=== PATIENT | female | born 1955 | race Caucasian/White ===

== ENCOUNTER 2016-12-09 14:43 | Inpatient (IN) | payer OTHER ==
[~2016-12-09] VITALS: Ht 167.6 cm; Wt 57.9 kg
[2016-12-09] MEDS ORDERED: SODIUM CHLORIDE FLUSH 10ML SYR IVF ONE (15:30)
[2016-12-09] MEDS ORDERED: SODIUM CHLORIDE 0.9% 1,000ML IVBOLUS ONE ×2 (15:30)
[2016-12-09 15:47] LABS: HEMATOCRIT 34.6 % (34.6-47.8); HEMOGLOBIN 11.5 g/dL (11.7-16.4); WHITE BLOOD COUNT 13.5 x10^3/uL (3.4-10)
[2016-12-09 15:52] LABS: ASPARTATE AMINO TRANSFERASE 8 U/L (15-37); BLOOD UREA NITROGEN 9 mg/dL (7-18)
[2016-12-09] MEDS ORDERED: VANCOMYCIN PMX 1GM/200ML 200 ML IV ONE (17:00)
[2016-12-09] MEDS ORDERED: PIPERACILLIN/TAZO/PMX 4.5GM 100 ML IVPB ONE ×2 (17:00→17:30)
[2016-12-09] MEDS ORDERED: PHARMACOKINETIC CONSULTATION MC ONE ×2 (17:00→20:30)
[2016-12-09] MEDS ORDERED: VANCOMYCIN 1,900 MG in SODIUM CHLORIDE 0.9% 250 ML IV ONE (17:00)
[2016-12-09] MEDS ORDERED: VANCOMYCIN PER PHARMACY MC ONE ×2 (17:00→17:30)
[2016-12-09] MEDS ORDERED: FENTANYL PF 100 MCG/2ML ONE (17:28)
[2016-12-09] MEDS ORDERED: MIDAZOLAM 1 MG/ML, 5ML ONE (17:28)
[2016-12-09] MEDS ORDERED: NALOXONE 1 MG/ML, 2ML ONE (17:29)
[2016-12-09] MEDS ORDERED: FLUMAZENIL 0.1 MG/1 ML, 5ML ONE (17:29)
[2016-12-09] MEDS ORDERED: ACETAMINOPHEN 325 MG TABLET PO PRN (17:30)
[2016-12-09] MEDS ORDERED: DOCUSATE 100 MG CAPSULE PO PRN (17:30)
[2016-12-09] MEDS ORDERED: ENALAPRILAT 1.25 MG/ML, 2ML IVPush PRN (17:30)
[2016-12-09] MEDS ORDERED: ONDANSETRON ODT 4 MG PO PRN (17:30)
[2016-12-09] MEDS: NICOTINE 14MG/24 HR PATCH.TD24 TD SCH (17:30)
[2016-12-09] MEDS ORDERED: ONDANSETRON 2MG/ML, 2ML IVPush PRN (17:30)
[2016-12-09] MEDS ORDERED: morphine SULFATE 10 MG/ML, 1ML IVPush PRN (17:30)
[2016-12-09] MEDS ORDERED: BISACODYL 10 MG SUPP PR PRN (17:30)
[2016-12-09] MEDS ORDERED: VANCOMYCIN PER PHARMACY MC PRN (18:00)
[2016-12-09] MEDS: PIPERACILLIN/TAZO/PMX 4.5GM 100 ML IV SCH (18:00)
[2016-12-09] MEDS ORDERED: PHARMACOKINETIC MONITORING MC PRN (20:30)
[2016-12-09] MEDS: SODIUM CHLORIDE 0.9% 1,000 ML IV SCH (20:47)
[2016-12-10] MEDS: PIPERACILLIN/TAZO/PMX 4.5GM 100 ML IV SCH ×4 (00:32→18:02)
[2016-12-10 04:05] VITALS: BP 131/82
[2016-12-10 05:11] LABS: HEMOGLOBIN 10.1 g/dL (11.7-16.4); WHITE BLOOD COUNT 10.4 x10^3/uL (3.4-10)
[2016-12-10 05:14] LABS: BLOOD UREA NITROGEN 4 mg/dL (7-18)
[2016-12-10 05:19] LABS: ASPARTATE AMINO TRANSFERASE 10 U/L (15-37)
[2016-12-10] MEDS: VANCOMYCIN PMX 1GM/200ML 200 ML IV SCH ×2 (08:00→21:04)
[2016-12-10 08:29] VITALS: BP 132/72
[2016-12-10] MEDS: SODIUM CHLORIDE 0.9% 1,000 ML IV SCH (11:55)
[2016-12-10 13:41] VITALS: BP 132/63
[2016-12-10] MEDS: HYDROcodone/APAP 5/325 TABLET PO PRN ×2 (13:53→18:10)
[2016-12-10] MEDS ORDERED: IBUPROFEN 200 MG TABLET PO PRN (14:00)
[2016-12-10] MEDS: NICOTINE 14MG/24 HR PATCH.TD24 TD SCH (16:46)
[2016-12-10] MEDS: IBUPROFEN 600 MG TABLET PO PRN (18:10)
[2016-12-10 19:07] VITALS: BP 103/65
[2016-12-11] MEDS: PIPERACILLIN/TAZO/PMX 4.5GM 100 ML IV SCH ×5 (00:02→23:59)
[2016-12-11] MEDS: HYDROcodone/APAP 5/325 TABLET PO PRN ×6 (01:12→22:18)
[2016-12-11 01:30] VITALS: BP 116/68
[2016-12-11] MEDS: IBUPROFEN 600 MG TABLET PO PRN ×3 (02:34→20:47)
[2016-12-11] MEDS: SODIUM CHLORIDE 0.9% 1,000 ML IV SCH ×2 (03:24→19:00)
[2016-12-11 05:53] LABS: BLOOD UREA NITROGEN 4 mg/dL (7-18)
[2016-12-11 06:13] LABS: HEMATOCRIT 28.6 % (34.6-47.8); HEMOGLOBIN 9.8 g/dL (11.7-16.4); WHITE BLOOD COUNT 8.7 x10^3/uL (3.4-10)
[2016-12-11 08:04] VITALS: BP 111/72
[2016-12-11] MEDS: VANCOMYCIN PMX 1GM/200ML 200 ML IV SCH (08:37)
[2016-12-11 13:32] VITALS: BP 127/74
[2016-12-11] MEDS: NICOTINE 14MG/24 HR PATCH.TD24 TD SCH (17:27)
[2016-12-11] MEDS ORDERED: PHARMACOKINETIC MONITORING MC PRN (19:00)
[2016-12-11] MEDS ORDERED: morphine SULFATE 10 MG/ML, 1ML IVPush PRN (19:00)
[2016-12-11] MEDS ORDERED: BISACODYL 10 MG SUPP PR PRN (19:00)
[2016-12-11] MEDS ORDERED: ACETAMINOPHEN 325 MG TABLET PO PRN (19:00)
[2016-12-11] MEDS ORDERED: VANCOMYCIN PER PHARMACY MC PRN (19:00)
[2016-12-11] MEDS ORDERED: ONDANSETRON ODT 4 MG PO PRN (19:00)
[2016-12-11] MEDS ORDERED: ONDANSETRON 2MG/ML, 2ML IVPush PRN (19:00)
[2016-12-11] MEDS ORDERED: ENALAPRILAT 1.25 MG/ML, 2ML IVPush PRN (19:00)
[2016-12-11 19:40] VITALS: BP 105/62
[2016-12-11] MEDS: VANCOMYCIN 1,200 MG in SODIUM CHLORIDE 0.9% 250 ML IV SCH (21:27)
[2016-12-12 01:58] VITALS: BP 121/68
[2016-12-12] MEDS: HYDROcodone/APAP 5/325 TABLET PO PRN ×4 (02:26→14:53)
[2016-12-12 05:27] LABS: HEMATOCRIT 27.6 % (34.6-47.8); HEMOGLOBIN 9.2 g/dL (11.7-16.4); WHITE BLOOD COUNT 9.2 x10^3/uL (3.4-10)
[2016-12-12 05:50] LABS: ASPARTATE AMINO TRANSFERASE 7 U/L (15-37); BLOOD UREA NITROGEN 4 mg/dL (7-18)
[2016-12-12] MEDS: SODIUM CHLORIDE 0.9% 1,000 ML IV SCH (06:26)
[2016-12-12] MEDS: PIPERACILLIN/TAZO/PMX 4.5GM 100 ML IV SCH (06:26)
[2016-12-12 07:47] VITALS: BP 134/82
[2016-12-12] MEDS: IBUPROFEN 600 MG TABLET PO PRN (08:59)
[2016-12-12] MEDS: DOCUSATE 100 MG CAPSULE PO PRN (08:59)
[2016-12-12] MEDS: VANCOMYCIN 1,200 MG in SODIUM CHLORIDE 0.9% 250 ML IV SCH (10:03)
[2016-12-12] MEDS: ERTAPENEM 1 GM in SODIUM CHLORIDE 0.9% 50 ML IV SCH (12:19)
[2016-12-12 15:03] VITALS: BP 127/79
[2016-12-12] MEDS ORDERED: MAGNESIUM CITRATE 300ML ORAL SOL PO PRN (16:30)
[2016-12-12] MEDS: NICOTINE 14MG/24 HR PATCH.TD24 TD SCH (17:23)
[2016-12-12 20:46] VITALS: BP 132/64
[2016-12-13] MEDS: HYDROcodone/APAP 5/325 TABLET PO PRN ×4 (01:13→20:56)
[2016-12-13] MEDS: IBUPROFEN 600 MG TABLET PO PRN ×3 (01:13→16:25)
[2016-12-13] MEDS: SODIUM CHLORIDE 0.9% 1,000 ML IV SCH ×2 (01:13→16:31)
[2016-12-13 04:00] VITALS: BP 121/67
[2016-12-13 07:55] VITALS: BP 134/81
[2016-12-13] MEDS: ERTAPENEM 1 GM in SODIUM CHLORIDE 0.9% 50 ML IV SCH (12:06)
[2016-12-13 13:05] VITALS: BP 128/68
[2016-12-13] MEDS: NICOTINE 14MG/24 HR PATCH.TD24 TD SCH (16:26)
[2016-12-13 20:18] VITALS: BP 143/82
[2016-12-13] MEDS: DOCUSATE 100 MG CAPSULE PO PRN (20:56)
[2016-12-14] MEDS: HYDROcodone/APAP 5/325 TABLET PO PRN ×4 (01:00→23:51)
[2016-12-14] MEDS: IBUPROFEN 600 MG TABLET PO PRN ×4 (01:00→23:06)
[2016-12-14] MEDS: SODIUM CHLORIDE 0.9% 1,000 ML IV SCH ×2 (06:45→23:03)
[2016-12-14 07:45] VITALS: BP 145/85
[2016-12-14] MEDS: ERTAPENEM 1 GM in SODIUM CHLORIDE 0.9% 50 ML IV SCH (12:00)
[2016-12-14 13:10] VITALS: BP 133/78
[2016-12-14] MEDS: NICOTINE 14MG/24 HR PATCH.TD24 TD SCH (17:13)
[2016-12-14 20:00] VITALS: BP 157/90
[2016-12-15 02:53] VITALS: BP 144/82
[2016-12-15 08:30] VITALS: BP 155/91
[2016-12-15] MEDS: IBUPROFEN 600 MG TABLET PO PRN ×4 (08:32→23:26)
[2016-12-15] MEDS: HYDROcodone/APAP 5/325 TABLET PO PRN ×3 (08:32→23:26)
[2016-12-15] MEDS: ERTAPENEM 1 GM in SODIUM CHLORIDE 0.9% 50 ML IV SCH (12:02)
[2016-12-15] MEDS: SODIUM CHLORIDE 0.9% 1,000 ML IV SCH (14:24)
[2016-12-15 15:10] VITALS: BP 135/81
[2016-12-15] MEDS: NICOTINE 14MG/24 HR PATCH.TD24 TD SCH (16:48)
[2016-12-15 19:54] VITALS: BP 153/95
[2016-12-16 01:02] VITALS: BP 143/80
[2016-12-16] MEDS ORDERED: OMNIPAQUE 350 MG/ML, 100ML BOTTLE ONE (02:41)
[2016-12-16] MEDS ORDERED: FUROSEMIDE 40 MG/4 ML IV ONE (04:00)
[2016-12-16] MEDS: SODIUM CHLORIDE 0.9% 1,000 ML IV SCH (05:42)
[2016-12-16] MEDS: HYDROcodone/APAP 5/325 TABLET PO PRN (09:39)
[2016-12-16] MEDS: IBUPROFEN 600 MG TABLET PO PRN (09:40)
[2016-12-16 09:59] VITALS: BP 135/77
[2016-12-16] MEDS: NICOTINE 14MG/24 HR PATCH.TD24 TD SCH (11:57)
[2016-12-16] MEDS: ERTAPENEM 1 GM in SODIUM CHLORIDE 0.9% 50 ML IV SCH (12:12)
[2016-12-16] MEDS ORDERED: HYDR-3240 PO (12:53)
[2016-12-16] MEDS ORDERED: ONDA4TAB13 PO (12:53)
[2016-12-16] MEDS ORDERED: NICO1PAT13 TD (12:53)
[2016-12-16] MEDS ORDERED: POLY17PO5 PO (12:53)
[2016-12-16] MEDS ORDERED: ERTA1VIA IV (12:53)
[2016-12-16] MEDS ORDERED: ACET325T14 PO (12:53)
[2016-12-16] MEDS ORDERED: BISA10SU65 PR (12:53)
[2016-12-16 13:54] VITALS: BP 115/75
== END 2016-12-16 15:05 | disposition home health service (06) | DRG 871 ==
LOC: ED 15:45 → EDIP 17:30 → 4NOR 19:55 → DCLOUNGE 12-16 14:35
PROVIDERS: ADMIT Internal Medicine; ATTEND Hospitalist
PROC: 0S923ZX Drainage of Lumbar Vertebral Disc, Percutaneous Approach, Diagnostic (ICD-10-PCS; 2016-12-09)
PROC: 02HV33Z Insertion of Infusion Device into Superior Vena Cava, Percutaneous Approach (ICD-10-PCS; principal; 2016-12-12)
PROC: B5181ZA Fluoroscopy of Superior Vena Cava using Low Osmolar Contrast, Guidance (ICD-10-PCS; 2016-12-12)
DX: A41.9 Sepsis, unspecified organism (principal); G06.2 Extradural and subdural abscess, unspecified; G06.1 Intraspinal abscess and granuloma; E43 Unspecified severe protein-calorie malnutrition; E87.1 Hypo-osmolality and hyponatremia; L02.212 Cutaneous abscess of back [any part, except buttock and flank]; M46.26 Osteomyelitis of vertebra, lumbar region; M86.10 Other acute osteomyelitis, unspecified site; Z88.8 Allergy status to other drugs, medicaments and biological substances; Z68.20 Body mass index [BMI] 20.0-20.9, adult; D64.9 Anemia, unspecified; D75.89 Other specified diseases of blood and blood-forming organs; F17.210 Nicotine dependence, cigarettes, uncomplicated; G89.29 Other chronic pain; I10 Essential (primary) hypertension; L93.0 Discoid lupus erythematosus; M46.46 Discitis, unspecified, lumbar region
CPT/HCPCS: 36415; 36569; 62267; 71010; 71275; 75989; 76937; 77001; 80048; 80053; 80202; 81003; 82040; 82550; 83605; 83735; 84100; 84145; 85025; 85610; 85651; 85730; 86140; 87040; 87070; 87075; 87076; 87086; 87102; 87205; 93005; 96365; 96375; 99156; J1335; J1940; J2250; J2405; J2543; J3010; J3370; Q9967; C1751; J2310; J7030; J7050

== ENCOUNTER → 2017-01-18 | Outpatient (CLI) | payer MEDICARE, OTHER ==
[~2017-01-18] MED LIST: ACET325T14 PO; BISA10SU65 PR; ERTA1VIA IV; GADOBUTROL 7.5 MMOL/7.5 ML PFS ONE; HYDR-3240 PO; NICO-486 TD; ONDA4TAB13 PO; POLY17PO5 PO
== END | disposition home or self-care (01) ==
LOC: RAD 13:49
PROVIDERS: ATTEND Family Medicine
DX: G06.1 Intraspinal abscess and granuloma (principal); M51.26 Other intervertebral disc displacement, lumbar region
CPT/HCPCS: 72158; A9585

== ENCOUNTER → 2017-02-09 | Outpatient (CLI) | payer MEDICARE, OTHER | END | disposition home or self-care (01) | LOC: CFH 14:01 | PROVIDERS: ATTEND Internal Medicine Infectious Disease | DX: M46.26 Osteomyelitis of vertebra, lumbar region (principal); M51.26 Other intervertebral disc displacement, lumbar region; M25.78 Osteophyte, vertebrae; G06.1 Intraspinal abscess and granuloma | CPT/HCPCS: 72158; A9585 ==

== ENCOUNTER → 2017-05-12 | Outpatient (CLI) | payer OTHER ==
[~2017-05-12] MED LIST changes: -GADOBUTROL 7.5 MMOL/7.5 ML PFS ONE
== END | disposition home or self-care (01) ==
LOC: CFH 12:08
PROVIDERS: ATTEND Student in an Organized Health Care Education/Training Program
DX: Z12.31 Encounter for screening mammogram for malignant neoplasm of breast (principal)
CPT/HCPCS: 77067